=== PATIENT | female | born 1995 ===

== ENCOUNTER 2022-02-20 06:31 | Day surgery (SDC) | payer OTHER ==
[2022-02-20] MEDS ORDERED: XYLOCAINE JELLY 221 TOP (13:43)
[2022-02-20] MEDS ORDERED: PREMARIN30 GM VAG (13:45)
[2022-02-20] MEDS ORDERED: ANTIBIOTIC28.4 GM TOP (13:46)
== END 2022-02-20 16:40 | disposition home or self-care (01) ==
LOC: CIR.AMB 06:31
PROVIDERS: ATTEND Obstetrics & Gynecology
DX: Q52.3 Imperforate hymen (principal); Z20.822 Contact with and (suspected) exposure to COVID-19; N13.30 Unspecified hydronephrosis